=== PATIENT | female | born 1935 | race Caucasian/White ===

== ENCOUNTER 2017-08-18 11:26 | Inpatient (IN) | payer MEDICARE, OTHER ==
[~2017-08-18] VITALS: Ht 149.9 cm; Wt 45.4 kg
[~2017-08-18 11:26] MED LIST: ALLO100T PO; ALPR0.5T PO; ASCO-339 PO; FOLI1TAB87 PO; METH-611 PO
[2017-08-18 13:08] LABS: CLARITY URINE CLEAR (CLEAR); COLOR URINE DARK YELLOW (YELLOW); KETONES URINE NEGATIVE (NEGATIVE); LEUKOCYTE ESTERASE URINE NEGATIVE (NEGATIVE); NITRITE URINE NEGATIVE (NEGATIVE); OCCULT BLOOD URINE NEGATIVE (NEGATIVE); PROTEIN URINE 1+ (NEGATIVE); SPECIFIC GRAVITY URINE 1.026 (1.005-1.030); UROBILINOGEN URINE 0.2 E.U./dL (0.2-1.0)
[2017-08-18] MEDS ORDERED: IPRATROPIUM BROMIDE (0.02%) 0.5MG/2.5ML NEB HHN STA (13:32)
[2017-08-18] MEDS ORDERED: ALBUTEROL (0.083%) 2.5MG/3ML NEB HHN STA (13:32)
[2017-08-18] MEDS ORDERED: METHYLPREDNISOLONE SOD SUCC 125 MG/2 ML VIAL IV STA (13:34)
[2017-08-18] MEDS ORDERED: MAGNESIUM 2 G PREMIX 50 ML IV ONE (13:45)
[2017-08-18] MEDS ORDERED: FUROSEMIDE 40MG/4ML VIAL IVP ONE (13:45)
[2017-08-18] MEDS ORDERED: ALBUTEROL (0.5%) 2.5MG/0.5ML NEB HHN ONE (14:04)
[2017-08-18] MEDS ORDERED: IPRATROPIUM BROMIDE (0.02%) 0.5MG/2.5ML NEB ONE (14:05)
[2017-08-18 14:25] LABS: BASOPHILS % 0.5 % (0.0-2.0); EOSINOPHILS % 0.1 % (0.0-5.0); HEMATOCRIT. 40.7 % (36.0-48.0); HEMOGLOBIN. 13.4 g/dL (12.0-16.0); LYMPHOCYTES % 18.4 % (20.0-50.0); MEAN CORPUSCULAR HEMOGLOBIN 31.7 pg (28.0-32.0); MEAN CORPUSCULAR VOLUME 95.9 fL (81.0-99.0); MEAN PLATELET VOLUME 8.1 fl (7.4-10.4); MONOCYTES % 14.4 % (2.0-8.0); NEUTROPHILS % 66.6 % (40.0-76.0); PLATELET 204 x1000/uL (130-400); RED BLOOD CELL COUNT 4.24 mill/uL (4.2-5.4); RED CELL DISTRIBUTION WIDTH 16.6 % (11.6-14.6)
[2017-08-18 14:29] LABS: CHLORIDE 102 mEq/L (98-107)
[2017-08-18 14:34] LABS: PARTIAL THROMBOPLASTIN TIME 24.7 sec (23.4-31.0); PROTHROMBIN TIME 10.9 sec (9.4-11.6)
[2017-08-18] MEDS ORDERED: LEVOFLOXACIN 500MG PREMIX 100 ML IV ONE (14:45)
[2017-08-18] MEDS ORDERED: MAGNESIUM/ALUMINUM HYDROXIDE/SIMETHICONE 30ML UDC PO PRN (17:45)
[2017-08-18] MEDS ORDERED: CLONIDINE 0.1MG TABLET PO PRN (17:45)
[2017-08-18] MEDS ORDERED: ACETAMINOPHEN 325MG TABLET PO PRN (17:45)
[2017-08-18] MEDS ORDERED: DIPHENHYDRAMINE 50MG/ML VIAL IV PRN (17:45)
[2017-08-18] MEDS ORDERED: IPRATROPIUM/ALBUTEROL 0.5-3(2.5)MG/3ML NEB INH PRN (17:45)
[2017-08-18] MEDS ORDERED: ONDANSETRON HCL 4MG/2ML VIAL IV PRN (17:45)
[2017-08-18] MEDS ORDERED: GUAIFENESIN 200MG/10ML SUGAR FREE UDC PO PRN (17:45)
[2017-08-18] MEDS ORDERED: ALPRAZOLAM 0.5 MG TABLET PO PRN (17:45)
[2017-08-18] MEDS ORDERED: MAGNESIUM HYDROXIDE 400MG/5ML 30ML UDC PO PRN (17:45)
[2017-08-18 18:30] VITALS: BP 128/52
[2017-08-18 19:30] VITALS: BP 98/49
[2017-08-18 20:00] VITALS: BP 98/49
[2017-08-18] MEDS ORDERED: ASPI-1159 PO (20:36)
[2017-08-18] MEDS: SODIUM CHLORIDE 0.9% INJ 3ML FLUSH IVF SCH (21:06)
[2017-08-18] MEDS: IPRATROPIUM/ALBUTEROL 0.5-3(2.5)MG/3ML NEB HHN SCH (21:17)
[2017-08-18] MEDS ORDERED: DEXTROSE 50% WATER 50ML SYRINGE IV PRN (22:15)
[2017-08-18] MEDS ORDERED: TEMAZEPAM 15MG CAPSULE PO PRN (22:15)
[2017-08-18] MEDS: INSULIN LISPRO 100 UNITS/ML SUBCUT SCH (22:51)
[2017-08-19] VITALS (7 sets, daily range): BP systolic 97–122; BP diastolic 46–60
[2017-08-19] MEDS: IPRATROPIUM/ALBUTEROL 0.5-3(2.5)MG/3ML NEB HHN SCH ×6 (00:34→21:20)
[2017-08-19] MEDS: SODIUM CHLORIDE 0.9% INJ 3ML FLUSH IVF SCH ×3 (05:57→21:52)
[2017-08-19] MEDS: BLOOD SUGAR DIAGNOSTIC STRIP TEST SCH ×4 (05:59→21:52)
[2017-08-19] MEDS: INSULIN LISPRO 100 UNITS/ML SUBCUT SCH ×4 (06:32→21:00)
[2017-08-19] MEDS ORDERED: METHADONE HCL 10MG TABLET PO SCH (09:00)
[2017-08-19] MEDS: ALLOPURINOL 100 MG TABLET PO SCH (10:02)
[2017-08-19] MEDS: FUROSEMIDE 40MG/4ML VIAL IVP SCH (10:02)
[2017-08-19] MEDS ORDERED: KEPP500 MT (10:22)
[2017-08-19] MEDS ORDERED: ASPI-1159 PO (10:24)
[2017-08-19] MEDS ORDERED: AMIO100T4 MT (10:25)
[2017-08-19] MEDS ORDERED: NEPVIT MT (10:26)
[2017-08-19] MEDS ORDERED: BENZONATATE 100MG CAPSULE PO PRN (11:45)
[2017-08-19] MEDS: SPIRONOLACTONE 25MG TABLET PO SCH (12:30)
[2017-08-19] MEDS: DILTIAZEM HCL 30MG TABLET PO SCH ×2 (15:12→21:43)
[2017-08-19 17:16] LABS: BG BASE EXCESS 2.3 mmol/L (-2.0-2.0); BG CARBOXYHEMOGLOBIN 1.4 % (0.5-1.5); BG DEOXYHEMOGLOBIN 15.1 % (0.0-5.0); BG FRACTION INSPIRED OXYGEN 32; BG HCO3 ACT 26.4 mmol/L (22.0-26.0); BG OXYGEN SATURATION 84.7 % (92.0-98.5); BG OXYHEMOGLOBIN 83.5 % (94.0-97.0); BG PH 7.448 (7.350-7.450); BG PO2 49.6 mmHg (75.0-100.0); BG SAMPLE SITE RIGHT BRACHIAL; BG TOTAL HEMOGLOBIN 13.1 g/dL (12.0-18.0); BG VENT MODE NASAL CANNULA
[2017-08-19] MEDS: GUAIFENESIN 600MG ER TABLET PO SCH (21:49)
[2017-08-20] VITALS: BP 95/52
[2017-08-20] MEDS: IPRATROPIUM/ALBUTEROL 0.5-3(2.5)MG/3ML NEB HHN SCH ×5 (02:21→16:20)
[2017-08-20 04:00] VITALS: BP 91/51
[2017-08-20] MEDS: DILTIAZEM HCL 30MG TABLET PO SCH ×3 (06:00→14:41)
[2017-08-20] MEDS: INSULIN LISPRO 100 UNITS/ML SUBCUT SCH ×3 (06:43→17:15)
[2017-08-20] MEDS: BLOOD SUGAR DIAGNOSTIC STRIP TEST SCH ×3 (06:43→16:45)
[2017-08-20] MEDS: SODIUM CHLORIDE 0.9% INJ 3ML FLUSH IVF SCH ×2 (06:44→14:40)
[2017-08-20 08:00] VITALS: BP 118/50
[2017-08-20] MEDS: FUROSEMIDE 40MG/4ML VIAL IVP SCH (08:20)
[2017-08-20] MEDS: ALLOPURINOL 100 MG TABLET PO SCH (08:20)
[2017-08-20] MEDS: GUAIFENESIN 600MG ER TABLET PO SCH (08:20)
[2017-08-20] MEDS: SPIRONOLACTONE 25MG TABLET PO SCH (10:02)
[2017-08-20 12:00] VITALS: BP 127/58
[2017-08-20 16:00] VITALS: BP 117/57
[2017-08-20 16:55] VITALS: BP 117/57
== END 2017-08-20 18:05 | DRG 291 ==
LOC: ER 12:48 → EDBEDREQ 14:13 → ENRESERV 15:26 → 5WST 18:19
PROVIDERS: ADMIT Internal Medicine; ATTEND Internal Medicine
DX: I13.0 Hypertensive heart and chronic kidney disease with heart failure and stage 1 through stage 4 chronic kidney disease, or unspecified chronic kidney disease (principal); I50.43 Acute on chronic combined systolic (congestive) and diastolic (congestive) heart failure; J96.01 Acute respiratory failure with hypoxia; K85.90 Acute pancreatitis without necrosis or infection, unspecified; J44.1 Chronic obstructive pulmonary disease with (acute) exacerbation; E44.0 Moderate protein-calorie malnutrition; I42.9 Cardiomyopathy, unspecified; N18.9 Chronic kidney disease, unspecified; E11.22 Type 2 diabetes mellitus with diabetic chronic kidney disease; G40.909 Epilepsy, unspecified, not intractable, without status epilepticus; B19.20 Unspecified viral hepatitis C without hepatic coma; R35.0 Frequency of micturition; K74.60 Unspecified cirrhosis of liver; I08.3 Combined rheumatic disorders of mitral, aortic and tricuspid valves; I27.81 Cor pulmonale (chronic); I27.20 Pulmonary hypertension, unspecified; I27.29 Other secondary pulmonary hypertension; I49.5 Sick sinus syndrome; R13.10 Dysphagia, unspecified; Z82.49 Family history of ischemic heart disease and other diseases of the circulatory system; Z83.3 Family history of diabetes mellitus; Z85.028 Personal history of other malignant neoplasm of stomach; Z85.07 Personal history of malignant neoplasm of pancreas; Z87.891 Personal history of nicotine dependence; Z90.710 Acquired absence of both cervix and uterus; Z92.21 Personal history of antineoplastic chemotherapy; Z92.3 Personal history of irradiation; Z95.0 Presence of cardiac pacemaker; Z68.20 Body mass index [BMI] 20.0-20.9, adult; Z88.0 Allergy status to penicillin; Z79.899 Other long term (current) drug therapy; Z90.49 Acquired absence of other specified parts of digestive tract
CPT/HCPCS: 36415; 36600; 70490; 71045; 71250; 80053; 81003; 82375; 82805; 82962; 83036; 83605; 83880; 84484; 85025; 85610; 85730; 87040; 92610; 93005; 93306; 93970; 94640; 96365; 96366; 96367; 96375; 99291; J1815; J1940; J1956; J2930; J3475; J7611; J7620